=== PATIENT | male | born 1935 | race American Indian/Alaskan Native ===

== ENCOUNTER 2018-04-12 07:03 | Day surgery (SDC) | payer MEDICARE ==
[~2018-04-12 07:03] MED LIST: ANCEF/STERILE WATER 2 GM/20 ML 2 GM/20 ML SYRINGE IV NR
[2018-04-12] MEDS ORDERED: HEPARIN 10,000 UNITS/10 ML ONE (09:01)
[2018-04-12] MEDS ORDERED: HEPARIN/NS 5000 UNIT/500ML(CATH LAB) 1,000 ML IR ONE (09:01)
[2018-04-12] MEDS ORDERED: XYLOCAINE 2% INFILTRATI ONE (09:02)
[2018-04-12] MEDS ORDERED: ANCEF/STERILE WATER 2 GM/20 ML 2 GM/20 ML SYRINGE IV ONE (09:02)
[2018-04-12] MEDS ORDERED: NACL 0.9% 500 ML 500 ML ONE (09:03)
[2018-04-12] MEDS ORDERED: SUBLIMAZE ONE (09:03)
[2018-04-12] MEDS: VERSED ONE ×2 (09:30→09:52)
[2018-04-12] MEDS ORDERED: XYLOCAINE 1%/ EPI 1:100,000 INFILTRATI ONE (09:59)
[2018-04-12 12:49] VITALS: BP 155/78
--- NOTE | 2018-04-12 16:03 | Short Stay Summary ---
Short Stay Documentation Date of service: 04/12/18 Narrative H&P: 83 year old male with LUE swelling and thrombosed LUE brachiocephalic AVF created less than a month ago. Discussed with family at bedside. Patient is a patient of Dr. Carbone. Discussed how Dr. Carbone or [facility]S can followup with the patient, but he would best be served by a right sided graft given that he has been catheter dependent on the LIJ for 3 years and likely has central narrowing. Family understands. - History Principal diagnosis: Complications of catheter/ESRD complications Past Medical History: dialysis Past Surgical History: Other (RUE AND LUE AVF creation, both failed) - Allergies and Medications Current Medications: Allergies aspirin Adverse Reaction (Unverified 04/12/18 07:04) Hives Home Medications Medication Instructions Recorded Confirmed Last Taken Type Calcium Acetate 3 cap PO TIDWM 04/12/18 04/12/18 5 Months Ago History ~11/13/17 Furosemide [Lasix] 80 mg PO BID 04/12/18 04/12/18 04/12/18 06:00 History amLODIPine [Norvasc] 10 mg PO DAILY 04/12/18 04/12/18 04/12/18 06:00 History - Physical exam General appearance: no acute distress Lungs: Normal air movement Gastrointestinal: normal Extremities: normal temperature, normal color, abnormal (edema LUE, thrombosed brachio-cephalic AVF) - Brief post op/procedure progress note Date of procedure: 04/12/18 Pre-op diagnosis: LUE swelling, complication of hemodialysis catheter Post-op diagnosis: same Procedure: Permcath exchange Central venography Venoplasty of the SVC and L innominate vein Anesthesia: local (w/ conscious sedation) Surgeon: LORNE SINGH Estimated blood loss: minimal Condition: stable - Hospital course Hospital course: Tolerated procedure without issue. Ready for discharge. - Disposition Condition at discharge: Stable Disposition: DC-01 TO HOME OR SELFCARE - Discharge Diagnoses (1) Complications due to renal dialysis device, implant, and graft Status: Acute Short Stay Discharge Plan Activity: advance as tolerated Weight Bearing Status: Weight Bear as Tolerated Diet: renal Wound: keep clean and dry (keep catheter dry) Follow up with: PRIMARY CARE,MD [Primary Care Provider] - 7 Days Forms: AVG Arteriogram D/CInstruction
--- NOTE | 2018-04-12 16:03 | Operative Report ---
Operative Report Operative Report: EXAM: 1. Fluoroscopic guided exchange of a left internal jugular tunneled cuffed hemodialysis catheter. 2. Superior venacava venography and left innominate venography 3. Angioplasty of the SVC and left innominate vein with a 12 mm x 60 mm angioplasty balloon DATE: 04/12/18 INDICATION: Creation of left brachiocephalic AV fistula which is thrombosed within the first month of creation with severe swelling of the left upper extremity and left jugular PermCath for 3 years. MEDICATIONS: Please see nursing report for full details. BSW: LORNE SINGH MD DEVICES: 23 cm tip to cuff 15 Fr dual lumen hemodialysis catheter ; existing catheter was a 23 cm tip to cuff dual lumen hemodialysis catheter CONTRAST: Please see electrical laboratory technician report for full details. PROCEDURE: The risks, benefits, and alternatives were discussed and informed consent was obtained. The patient was transported to the angiography suite in satisfactory/ stable condition and was transported onto the angiography table. The patient was prepped and draped in a sterile fashion. The existing PermCath was prepped and draped in a sterile fashion. Heparin was removed from the lumens and then saline was used to flush the lumens. A stiff angled Glidewire was advanced through one of the lumen of the existing PermCath. Lidocaine was used to anesthetize the existing PermCath dermatotomy. Using a hemostat, blunt dissection was used to free the existing cuff. The catheter was partially retracted. Digital subtraction venography was performed through the other lumen. Over the 0.035 inch wire, the existing PermCath was removed and a 7 Icelandic sheath was advanced over the wire. 12 mm x 60 mm angioplasty balloon was advanced over the wire and used to perform angioplasty of the SVC and left innominate vein. Digital subtraction angiography was performed. The balloon was removed and a second wire was passed into the IVC. The sheath was removed. A new PermCath was advanced over the wire and position centrally under fluoroscopic guidance. 2-0 Ethilon suture was used to secure the catheter at the dermatotomy. The catheter was charged with 1000 units of heparin per mL of space. Sterile dressing applied with Biopatch. The patient was transferred from the angiography suite back to the floor in stable condition. FINDINGS: 1. Excellent flow was obtained through the dialysis catheter with 20 mL syringes. 2. The new catheter tip is in the right atrium. 3. Superior vena cava venography mild narrowing in the left innominate vein is essentially occluded. After angioplasty, there is 40% residual narrowing of the left innominate vein and no residual narrowing of the SVC. IMPRESSION: 1. Successful fluoroscopic guided replacement of a left internal jugular tunneled cuffed hemodialysis catheter. 2. Successful angioplasty of the SVC and left innominate vein with a 12 mm x 60 mm angioplasty balloon.
== END 2018-04-12 14:45 | disposition home or self-care (01) ==
LOC: CATHLABREC 07:03
PROVIDERS: ATTEND Radiology Diagnostic Radiology
DX: T82.868A Thrombosis due to vascular prosthetic devices, implants and grafts, initial encounter (principal); N18.6 End stage renal disease; Z88.6 Allergy status to analgesic agent; Y83.2 Surgical operation with anastomosis, bypass or graft as the cause of abnormal reaction of the patient, or of later complication, without mention of misadventure at the time of the procedure
CPT/HCPCS: 36415; 36581; 37248; 77001; 84132; 99156; 99157; C1725; C1750; C1769; C1894; J0690; J1644; J2250; J3010; J7040; Q9967

== ENCOUNTER 2019-09-19 13:52 | Observation (INO) | payer MEDICARE ==
--- NOTE | 2019-09-19 14:36 | Event Note ---
ED Screening Note Date of service: 09/19/19 Time: 14:33 ED Screening Note: 84 yo ESRD on MWF dialysis presents with missed 3 sessions of Dialysis cc of sob This initial assessment/diagnostic orders/clinical plan/treatment(s) is/are subject to change based on patients health status, clinical progression and re- assessment by fellow clinical providers in the ED. Further treatment and workup at subsequent clinical providers discretion. Patient/guardian urged not to elope from the ED as their condition may be serious if not clinically assessed and managed. Initial orders include: labs main side eval
[2019-09-19 15:14] LABS: Basophils % (Auto) 0.8 % (0.0-1.8); Eosinophils # (Auto) 0.3 K/mm3 (0.0-0.4); Eosinophils % (Auto) 6.6 % (0.0-4.3); Hematocrit 30.6 % (35.5-45.6); Hemoglobin 10.6 gm/dl (11.8-15.2); Lymphocytes # (Auto) 1.1 K/mm3 (1.2-5.4); Lymphocytes % (Auto) 23.8 % (13.4-35.0); Mean Corpuscular HGB Conc 35 % (32-34); Mean Corpuscular Volume 95 fl (84-94); Monocytes # (Auto) 0.4 K/mm3 (0.0-0.8); Monocytes % (Auto) 9.3 % (0.0-7.3); Platelet Count 230 K/mm3 (140-440); Red Blood Count 3.24 M/mm3 (3.65-5.03); Red Cell Distribution Width 16.8 % (13.2-15.2)
[2019-09-19 16:31] LABS: Albumin 3.1 g/dL (3.9-5); Calcium 7.6 mg/dL (8.4-10.2)
--- NOTE | 2019-09-19 18:51 | Emergency Department Report ---
ED Medical Clearance HPI - General Chief complaint: Dyspnea/Respdistress Stated complaint: DIALYSIS/BP MED REFILL Time Seen by Provider: 09/19/19 18:39 Source: patient, family, RN notes reviewed Mode of arrival: Ambulatory Limitations: Other (patient is a poor historian) - History of Present Illness Initial comments: Nephrology: Dr. Pat The patient is an 84-year-old gentleman, history of end-stage renal disease, on hemodialysis, Sunday, Sunday, Sunday, his last hemodialysis session was almost a week and a half ago. He also has a history of hypertension. Patient presents with complaint of missing multiple dialysis sessions. He reported some shortness of breath. Apparently he also had a mechanical fall a few days ago, and hit his head. At the time, he did not seek medical attention. He has mild left knee pain. Otherwise, he denies physical pain. He himself does not endorse any additional complaints. As per family, patient was not able to get to dialysis, as local public transportation was not working. MD Complaint: medical clearance request -: unknown Reason for Medical Clearance: other trauma, medical condition, laboratory abnormality Place: home, street Alledged Intoxication: No Compliant with Home Medications: Yes Traumatic Symptoms: extremity injury Associated Symptoms: shortness of breath Home medications: Home Medications Medication Instructions Recorded Confirmed Last Taken amLODIPine [Norvasc] 10 mg PO DAILY 04/12/18 09/19/19 04/12/18 06:00 Sevelamer Carbonate [Renvela] 3 tsp PO TID 09/19/19 09/19/19 Unknown Allergies/Adverse reactions: Allergies Allergy/AdvReac Type Severity Reaction Status Date / Time aspirin AdvReac Hives Unverified 04/12/18 07:04 ED Review of Systems ROS: Stated complaint: DIALYSIS/BP MED REFILL Other details as noted in HPI Constitutional: denies: fever Eyes: denies: eye discharge ENT: denies: congestion Respiratory: shortness of breath Cardiovascular: denies: syncope Gastrointestinal: denies: abdominal pain Genitourinary: denies: dysuria Musculoskeletal: arthralgia, myalgia Skin: denies: lesions Neurological: denies: weakness, numbness, paresthesias, confusion Hematological/Lymphatic: denies: easy bleeding ED Past Medical Hx - Past Medical History Previous Medical History?: Yes Hx Hypertension: Yes Hx Renal Disease: Yes (ESRD; HD MWF) Hx Asthma: Yes - Surgical History Past Surgical History?: No - Social History Smoking Status: Never Smoker Substance Use Type: None - Medications Home Medications: Home Medications Medication Instructions Recorded Confirmed Last Taken Type amLODIPine [Norvasc] 10 mg PO DAILY 04/12/18 09/19/19 04/12/18 06:00 History Sevelamer Carbonate [Renvela] 3 tsp PO TID 09/19/19 09/19/19 Unknown History ED Physical Exam - General Limitations: No Limitations, Other (chaperoned by Mary Meraz) General appearance: alert, in no apparent distress - Head Head exam: Present: atraumatic, normocephalic - Eye Eye exam: Present: normal appearance, EOMI. Absent: nystagmus - ENT ENT exam: Present: normal exam, normal orophraynx, mucous membranes moist, normal external ear exam - Neck Neck exam: Present: normal inspection, full ROM. Absent: tenderness, meningismus - Respiratory Respiratory exam: Present: decreased breath sounds. Absent: wheezes, rales, rhonchi, stridor - Cardiovascular Cardiovascular Exam: Present: regular rate, normal rhythm, normal heart sounds. Absent: bradycardia, tachycardia, irregular rhythm, systolic murmur, diastolic murmur, rubs, gallop - GI/Abdominal GI/Abdominal exam: Present: soft. Absent: distended, tenderness, guarding, rebound, rigid, pulsatile mass - Rectal Rectal exam: Present: deferred - Extremities Exam Extremities exam: Present: full ROM, pedal edema, other (2+ pulses noted in the bilateral upper and lower extremities. The pelvis is stable. There is no long bony tenderness. The muscular compartments are soft. There is no redness, pus, streaking or erythema.). Absent: normal inspection (there is a small abrasion to the left lateral knee. There is no tenderness. There is no laceration.), tenderness, calf tenderness - Back Exam Back exam: Present: normal inspection. Absent: tenderness, CVA tenderness (R), CVA tenderness (L), paraspinal tenderness, vertebral tenderness - Neurological Exam Neurological exam: Present: alert, other (there is no facial droop. The tongue is midline. Extraocular movements are intact bilaterally. Speaking in full sentences. Hearing is grossly intact. 5 out of 5 strength bilateral upper and lower extremities. Sensation is intact to light touch bilateral upper and lower extremities.). Absent: motor sensory deficit - Skin Skin exam: Present: warm ED Course Vital Signs 09/19/19 09/19/19 09/19/19 14:33 19:30 20:00 Temperature 97.5 F L 97.6 F Pulse Rate 65 62 61 Pulse Rate [ Bilateral] Respiratory 20 16 17 Rate Respiratory Rate [Bilateral ] Blood Pressure 160/79 Blood Pressure 153/66 160/79 [Left] O2 Sat by Pulse 100 95 100 Oximetry 09/19/19 09/19/19 09/19/19 20:21 20:30 21:00 Temperature Pulse Rate 64 54 L Pulse Rate [ 55 L Bilateral] Respiratory 15 14 Rate Respiratory 15 Rate [Bilateral ] Blood Pressure 168/77 Blood Pressure [Left] O2 Sat by Pulse 100 100 Oximetry 09/19/19 09/19/19 09/19/19 21:30 22:22 22:30 Temperature Pulse Rate 64 60 58 L Pulse Rate [ Bilateral] Respiratory 20 19 17 Rate Respiratory Rate [Bilateral ] Blood Pressure 154/67 154/67 154/61 Blood Pressure [Left] O2 Sat by Pulse 100 97 97 Oximetry 09/19/19 09/19/19 09/19/19 23:00 23:30 23:42 Temperature Pulse Rate 57 L 56 L 60 Pulse Rate [ Bilateral] Respiratory 15 18 17 Rate Respiratory Rate [Bilateral ] Blood Pressure 149/63 149/63 149/57 Blood Pressure [Left] O2 Sat by Pulse 94 93 93 Oximetry 09/20/19 09/20/19 09/20/19 00:00 00:30 01:00 Temperature Pulse Rate 58 L 70 60 Pulse Rate [ Bilateral] Respiratory 17 18 17 Rate Respiratory Rate [Bilateral ] Blood Pressure 149/57 138/61 131/75 Blood Pressure [Left] O2 Sat by Pulse 90 95 94 Oximetry - Reevaluation(s) Reevaluation #1: 09/19/19 23:40 Patient resting comfortably, and in no acute distress. CT scan of the brain is negative for acute disease. Hospital physician, Dr. Timmons, has accepted the patient medical service. ED Medical Decision Making - Lab Data Result diagrams: 09/19/19 14:52 09/19/19 14:52 Vital Signs 09/19/19 09/19/19 09/19/19 14:33 19:30 20:00 Temperature 97.5 F L 97.6 F Pulse Rate 65 62 61 Pulse Rate [ Bilateral] Respiratory 20 16 17 Rate Respiratory Rate [Bilateral ] Blood Pressure 160/79 Blood Pressure 153/66 160/79 [Left] O2 Sat by Pulse 100 95 100 Oximetry 09/19/19 09/19/19 20:21 20:30 Temperature Pulse Rate 64 Pulse Rate [ 55 L Bilateral] Respiratory 15 Rate Respiratory 15 Rate [Bilateral ] Blood Pressure Blood Pressure [Left] O2 Sat by Pulse 100 Oximetry Lab Results 09/19/19 09/19/19 Range/Units 14:52 14:52 WBC 4.8 (4.5-11.0) K/mm3 RBC 3.24 L (3.65-5.03) M/mm3 Hgb 10.6 L (11.8-15.2) gm/dl Hct 30.6 L (35.5-45.6) % MCV 95 H (84-94) fl MCH 33 H (28-32) pg MCHC 35 H (32-34) % RDW 16.8 H (13.2-15.2) % Plt Count 230 (140-440) K/mm3 Lymph % (Auto) 23.8 (13.4-35.0) % [place] % (Auto) 9.3 H (0.0-7.3) % Eos % (Auto) 6.6 H (0.0-4.3) % Baso % (Auto) 0.8 (0.0-1.8) % Lymph # 1.1 L (1.2-5.4) K/mm3 [place] # 0.4 (0.0-0.8) K/mm3 Eos # 0.3 (0.0-0.4) K/mm3 Baso # 0.0 (0.0-0.1) K/mm3 Seg Neutrophils % 59.5 (40.0-70.0) % Seg Neutrophils # 2.9 (1.8-7.7) K/mm3 Sodium 139 (137-145) mmol/L Potassium 5.8 H (3.6-5.0) mmol/L Chloride 100.7 (98-107) mmol/L Carbon Dioxide 15 L (22-30) mmol/L Anion Gap 29 mmol/L BUN 136 H (9-20) mg/dL Creatinine 16.1 H (0.8-1.5) mg/dL Estimated GFR 3 ml/min BUN/Creatinine Ratio 8 % Glucose 88 (75-100) mg/dL Calcium 7.6 L (8.4-10.2) mg/dL Total Bilirubin 0.40 (0.1-1.2) mg/dL AST 13 (5-40) units/L ALT 5 L (7-56) units/L Alkaline Phosphatase 84 (35-129) units/L Total Protein 6.8 (6.3-8.2) g/dL Albumin 3.1 L (3.9-5) g/dL Albumin/Globulin Ratio 0.8 % - EKG Data -: EKG Interpreted by Me - EKG Data 09/19/19 21:02 The EKG is abnormal. The EKG shows a bradycardic rhythm, 61 bpm, appears to be first-degree AV block, with very prolonged GA interval., there is a left axis deviation, QTC is 510 ms, there is an incomplete right bundle branch block, there is an interventricular conduction delay, the EKG is abnormal, it is not consistent with ST elevation myocardial infarction. - Radiology Data Radiology results: pending, image reviewed interpreted by me: xr chest--> Pulmonary vascular congestion, enlarged cardiac silhouette - Medical Decision Making Differential diagnosis, including but not limited to: Azotemia, uremia, metabolic acidosis, intracranial injury, hyperkalemia Assessment and plan: 84-year-old gentleman who has missed a few dialysis sessions, now with hyperkalemia, azotemia, and uremia. He also has a subacute history of mild blunt head trauma. There is no midline cervical spine tenderness. The injury was sustained a few days ago.Patient is clinically sober at this time. The cervical spine is cleared through nexus and togolese c spine rule Doubt intracranial injury. However, given his advanced age, noncontrast CT scan of the brain will be obtained. Contacted covering nephrology, Dr. Fuentes, who advises medical management for hyperkalemia, and indicates his group can arrange for dialysis in the morning. Discussed this with patient and family, patient and family amenable to hospitalization. CT scan of the brain is pending interpretation and acquisition at this time. ED Disposition Clinical Impression: Azotemia, Uremia, Hyperkalemia, History of fall Disposition: DC-01 TO HOME OR SELFCARE Is pt being admited?: Yes Does the pt Need Aspirin: No Condition: Fair
[2019-09-19] MEDS ORDERED: CALCIUM GLUCONATE 2,000 MG in SODIUM CHLORIDE 0.9% 100 ML IV ONE (18:54)
[2019-09-19] MEDS ORDERED: SODIUM BICARB 8.4% 50 MEQ/50 ML SYRINGE IV ONE (18:54)
[2019-09-19] MEDS ORDERED: ALBUTEROL 2.5 MG/3 ML NEBU IH ONE (18:54)
[2019-09-19] MEDS ORDERED: INSULIN REGULAR, HUMAN 100 UNITS/1 ML IV ONE (18:54)
[2019-09-19] MEDS ORDERED: DEXTROSE 50% IN WATER (25GM) 50 ML SYRINGE IV ONE (18:54)
[2019-09-19] MEDS ORDERED: SODIUM CHLORIDE 0.9% 100 ML IV PRN (19:49)
--- NOTE | 2019-09-19 22:17 | XRay Report ---
CHEST 1 VIEW INDICATION / CLINICAL INFORMATION: End-stage renal disease and fluid overload. COMPARISON: None available FINDINGS: SUPPORT DEVICES: None. HEART / MEDIASTINUM: Moderate cardiomegaly. LUNGS / PLEURA: Elevated right diaphragm. Bibasilar platelike atelectasis. No laura consolidation of pulmonary parenchyma. Mildly increased interstitial markings throughout both lungs. Scattered calcifi ed granulomata are present. There may be a small left pleural effusion. No right pleural fluid is timi reciated. No pneumothorax. IMPRESSION: Mild cardiomegaly with suggestion of mild interstitial edema and possibly a small left pleural effusi on. Signer Name: Xavi Diaz MD Signed: 09/19/2019 10:12 PM Workstation Name: [id number]
[2019-09-19 22:22] LABS: Hepatitis C Virus Antibody Nonreactive (NonReactive)
[2019-09-19 22:23] LABS: Hepatitis B Surface Antigen Nonreactive (Negative)
--- NOTE | 2019-09-19 23:31 | Cat Scan Report ---
Examination: CT of the head without contrast Clinical information: Trauma. Comparison: No relevant prior studies are available for comparison. Technical: Multiple axial CT images of the head were obtained without intravenous contrast. Sagittal and coronal reformats were obtained. All CTs at this facility utilize dose reduction techniques inc luding automated exposure control, iterative reconstruction and weight based dosing when appropriate to reduce patient radiation dose to as low as reasonable achievable. Findings: There is no CT evidence of acute intracranial hemorrhage or large territorial infarct. Mode rate generalized parenchymal atrophy is noted with concomitant dilatation of the ventricular system a nd prominence of sulcal spaces. No extra-axial fluid collection is identified. Evaluation of bony structures demonstrates no evidence of acute bony abnormality. The visualized para nasal sinuses and mastoid air cells are clear. Impression: 1. No CT evidence of acute intracranial process. 2. Chronic and age-related changes as described above. Signer Name: Janneth Zaidi MD Signed: 09/19/2019 11:27 PM Workstation Name: [id number]
[2019-09-19] MEDS ORDERED: ALBUTEROL 2.5 MG/3 ML NEBU IH PRN (23:41)
[2019-09-19] MEDS ORDERED: ONDANSETRON 4 MG/2 ML INJ IV PRN (23:41)
[2019-09-19] MEDS ORDERED: ACETAMINOPHEN 325 MG TAB PO PRN (23:41)
[2019-09-19] MEDS ORDERED: METOCLOPRAMIDE 10 MG/2 ML INJ IV PRN (23:41)
[2019-09-20] MEDS ORDERED: diphenhydrAMINE 50 MG/ML VIAL IV PRN (00:09)
[2019-09-20] MEDS ORDERED: METOCLOPRAMIDE 10 MG/2 ML INJ IV PRN (00:27)
--- NOTE | 2019-09-20 00:32 | History and Physical Report ---
<FERNANDO POST - Last Filed: 09/20/19 01:18> History of Present Illness Date of examination: 09/19/19 Date of admission: 09/19/2019 Chief complaint: SOB, missed HD, and recent fall History of present illness: 84-year-old -Maltese male with history of ESRD on HD (M/W/F), and asthma who presents to [facility] ED with complaints of shortness of breath after missing multiple dialysis. Patient is a poor historian, and provides limited history. Patient states that he has missed multiple dialysis appointments due to transportation issues. He was last dialyzed on 09/08/2019. Over the past week he has experienced progressively worsening shortness of breath. His shortness of breath is worse with activity and improves with rest. Additionally he complains of mild left knee pain after falling a few days ago. He did not seek medical attention, because he felt fine. Admits to head injury during the fall. He denies loss of consciousness. Past History Past Medical History: ESRD (on HD M/W/F), other (asthma) Past Surgical History: Other (MEÑO AV Fistula) Social history: lives with family Family history: no significant family history Medications and Allergies Allergies Allergy/AdvReac Type Severity Reaction Status Date / Time aspirin AdvReac Hives Unverified 04/12/18 07:04 Home Medications Medication Instructions Recorded Confirmed Last Taken Type amLODIPine [Norvasc] 10 mg PO DAILY 04/12/18 09/19/19 04/12/18 06:00 History Sevelamer Carbonate [Renvela] 3 tsp PO TID 09/19/19 09/19/19 Unknown History Active Meds: Active Medications Acetaminophen (Tylenol) 650 mg PO Q4H PRN PRN Reason: Pain MILD(1-3)/Fever >100.5/DEVINE Albuterol (Proventil) 2.5 mg IH Q3HRT PRN PRN Reason: Shortness Of Breath Amlodipine Besylate (Amlodipine) 10 mg PO DAILY SKYLAR Diphenhydramine HCl (Benadryl) 25 mg IV Q6H PRN PRN Reason: Itching Heparin Sodium (Porcine) (Heparin) 5,000 unit SUB-Q Q12HR SKYLAR Sodium Chloride (Nacl 0.9%) 100 mls @ 999 mls/hr IV MACK PRN PRN Reason: Hypotension Metoclopramide HCl (Reglan) 2.5 mg IV Q6H PRN PRN Reason: Nausea And Vomiting Ondansetron HCl (Zofran) 4 mg IV Q8H PRN PRN Reason: Nausea And Vomiting Sevelamer Carbonate (Renvela) 2,400 mg PO TIDWM SKYLAR Sodium Chloride (Sodium Chloride Flush Syringe 10 Ml) 10 ml IV BID SKYLAR Sodium Chloride (Sodium Chloride Flush Syringe 10 Ml) 10 ml IV PRN PRN PRN Reason: LINE FLUSH Review of Systems All systems: negative Respiratory: shortness of breath, dyspnea on exertion Musculoskeletal: other (recent fall and mild left knee pain ) Exam - Physical Exam Narrative exam: Physical exam General appearance: Present: No acute distress, alert and oriented 3, well- developed, older adult male - EENT Eyes: Present: PERRL, EOM intact ENT: hearing intact, poor dentition - Neck Neck: Present: supple, normal ROM - Respiratory Respiratory effort: Non-labored Respiratory: faint crackles to bases - Cardiovascular Heart rate: 61 (bpm) Rhythm: Sinus rhythm Heart Sounds: Present: S1 & S2. Absent: rub, click - Extremities Extremities: no ischemia, pulses intact, right upper arm AV fistula - Peripheral Assessment Peripheral Pulses: within normal limits - Abdominal General gastrointestinal: soft, non-tender, normal bowel sounds - Integumentary Integumentary: Present: warm, dry - Musculoskeletal Musculoskeletal: Able to move all extremities -Neurological Neurological: CN II-XII intact - Psychiatric Psychiatric: cooperative - Constitutional Vitals: Temp Pulse Resp BP Pulse Ox 97.6 F 56 L 18 149/63 93 09/19/19 19:30 09/19/19 23:30 09/19/19 23:30 09/19/19 23:30 09/19/19 23:30 Results - Labs CBC & Chem 7: 09/19/19 14:52 09/19/19 14:52 Labs: Laboratory Last Values WBC 4.8 K/mm3 (4.5-11.0) 09/19/19 14:52 RBC 3.24 M/mm3 (3.65-5.03) L 09/19/19 14:52 Hgb 10.6 gm/dl (11.8-15.2) L 09/19/19 14:52 Hct 30.6 % (35.5-45.6) L 09/19/19 14:52 MCV 95 fl (84-94) H 09/19/19 14:52 MCH 33 pg (28-32) H 09/19/19 14:52 MCHC 35 % (32-34) H 09/19/19 14:52 RDW 16.8 % (13.2-15.2) H 09/19/19 14:52 Plt Count 230 K/mm3 (140-440) 09/19/19 14:52 Lymph % (Auto) 23.8 % (13.4-35.0) 09/19/19 14:52 [place] % (Auto) 9.3 % (0.0-7.3) H 09/19/19 14:52 Eos % (Auto) 6.6 % (0.0-4.3) H 09/19/19 14:52 Baso % (Auto) 0.8 % (0.0-1.8) 09/19/19 14:52 Lymph # 1.1 K/mm3 (1.2-5.4) L 09/19/19 14:52 [place] # 0.4 K/mm3 (0.0-0.8) 09/19/19 14:52 Eos # 0.3 K/mm3 (0.0-0.4) 09/19/19 14:52 Baso # 0.0 K/mm3 (0.0-0.1) 09/19/19 14:52 Seg Neutrophils % 59.5 % (40.0-70.0) 09/19/19 14:52 Seg Neutrophils # 2.9 K/mm3 (1.8-7.7) 09/19/19 14:52 Sodium 139 mmol/L (137-145) 09/19/19 14:52 Potassium 5.8 mmol/L (3.6-5.0) H 09/19/19 14:52 Chloride 100.7 mmol/L (98-107) 09/19/19 14:52 Carbon Dioxide 15 mmol/L (22-30) L 09/19/19 14:52 Anion Gap 29 mmol/L 09/19/19 14:52 BUN 136 mg/dL (9-20) H 09/19/19 14:52 Creatinine 16.1 mg/dL (0.8-1.5) H 09/19/19 14:52 Estimated GFR 3 ml/min 09/19/19 14:52 BUN/Creatinine Ratio 8 % 09/19/19 14:52 Glucose 88 mg/dL (75-100) 09/19/19 14:52 Calcium 7.6 mg/dL (8.4-10.2) L 09/19/19 14:52 Total Bilirubin 0.40 mg/dL (0.1-1.2) 09/19/19 14:52 AST 13 units/L (5-40) 09/19/19 14:52 ALT 5 units/L (7-56) L 09/19/19 14:52 Alkaline Phosphatase 84 units/L (35-129) 09/19/19 14:52 Total Protein 6.8 g/dL (6.3-8.2) 09/19/19 14:52 Albumin 3.1 g/dL (3.9-5) L 09/19/19 14:52 Albumin/Globulin Ratio 0.8 % 09/19/19 14:52 Hepatitis A IgM Ab Nonreactive (NonReactive) 09/19/19 21:04 Hep Bs Antigen Nonreactive (Negative) 09/19/19 21:04 Hep B Core IgM Ab Non-reactive (NonReactive) 09/19/19 21:04 Hepatitis C Antibody Nonreactive (NonReactive) 09/19/19 21:04 - Imaging and Cardiology Imaging and Cardiology: CXR: FINDINGS: SUPPORT DEVICES: None. HEART / MEDIASTINUM: Moderate cardiomegaly. LUNGS / PLEURA: Elevated right diaphragm. Bibasilar platelike atelectasis. No laura consolidation of pulmonary parenchyma. Mildly increased interstitial markings throughout both lungs. Scattered calcified granulomata are present. There may be a small left pleural effusion. No right pleural fluid is appreciated. No pneumothorax. IMPRESSION: Mild cardiomegaly with suggestion of mild interstitial edema and possibly a small left pleural effusion. CT Head: Impression: Negative for acute findings Assessment and Plan Assessment and plan: 84-year-old -Maltese male with history of ESRD on HD (M/W/F), and asthma who presents to [facility] ED with complaints of shortness of breath after missing multiple dialysis. Hyperkalemia -on admission 5.8 -Received hyperkalemic cocktail -Follow-up on repeat labs -Continue to monitor electrolytes ESRD -on HD M/W/F -Last dialyzed on Sunday (09/08/2019) -Missed HD sessions due to transportation issues -Cr on admission 16.1 -Avoid nephrotoxic agents -Renal dose all meds -Nephrology consulted Recent Fall -Pt resports falling a few days ago and hitting his head -CT Head Negative Asthma -Albuterol prn DVT PPX -on Heparin Advance Directives: No VTE prophylaxis?: Chemical Plan of care discussed with patient/family: Yes <REED GRIMES - Last Filed: 09/20/19 02:26> History of Present Illness Date of admission: 09/19/19 23:41 Medications and Allergies Active Meds: Active Medications Acetaminophen (Tylenol) 650 mg PO Q4H PRN PRN Reason: Pain MILD(1-3)/Fever >100.5/DEVINE Albuterol (Proventil) 2.5 mg IH Q3HRT PRN PRN Reason: Shortness Of Breath Amlodipine Besylate (Amlodipine) 10 mg PO DAILY SKYLAR Diphenhydramine HCl (Benadryl) 25 mg IV Q6H PRN PRN Reason: Itching Heparin Sodium (Porcine) (Heparin) 5,000 unit SUB-Q Q12HR SKYLAR Sodium Chloride (Nacl 0.9%) 100 mls @ 999 mls/hr IV MACK PRN PRN Reason: Hypotension Metoclopramide HCl (Reglan) 2.5 mg IV Q6H PRN PRN Reason: Nausea And Vomiting Ondansetron HCl (Zofran) 4 mg IV Q8H PRN PRN Reason: Nausea And Vomiting Sevelamer Carbonate (Renvela) 2,400 mg PO TIDWM SKYLAR Sodium Chloride (Sodium Chloride Flush Syringe 10 Ml) 10 ml IV BID SKYLAR Sodium Chloride (Sodium Chloride Flush Syringe 10 Ml) 10 ml IV PRN PRN PRN Reason: LINE FLUSH Exam - Constitutional Vitals: Temp Pulse Resp BP Pulse Ox 97.6 F 60 17 131/75 94 09/19/19 19:30 09/20/19 01:00 09/20/19 01:00 09/20/19 01:00 09/20/19 01:00 Results - Labs CBC & Chem 7: 09/19/19 14:52 09/20/19 01:11 Labs: Laboratory Last Values WBC 4.8 K/mm3 (4.5-11.0) 09/19/19 14:52 RBC 3.24 M/mm3 (3.65-5.03) L 09/19/19 14:52 Hgb 10.6 gm/dl (11.8-15.2) L 09/19/19 14:52 Hct 30.6 % (35.5-45.6) L 09/19/19 14:52 MCV 95 fl (84-94) H 09/19/19 14:52 MCH 33 pg (28-32) H 09/19/19 14:52 MCHC 35 % (32-34) H 09/19/19 14:52 RDW 16.8 % (13.2-15.2) H 09/19/19 14:52 Plt Count 230 K/mm3 (140-440) 09/19/19 14:52 Lymph % (Auto) 23.8 % (13.4-35.0) 09/19/19 14:52 [place] % (Auto) 9.3 % (0.0-7.3) H 09/19/19 14:52 Eos % (Auto) 6.6 % (0.0-4.3) H 09/19/19 14:52 Baso % (Auto) 0.8 % (0.0-1.8) 09/19/19 14:52 Lymph # 1.1 K/mm3 (1.2-5.4) L 09/19/19 14:52 [place] # 0.4 K/mm3 (0.0-0.8) 09/19/19 14:52 Eos # 0.3 K/mm3 (0.0-0.4) 09/19/19 14:52 Baso # 0.0 K/mm3 (0.0-0.1) 09/19/19 14:52 Seg Neutrophils % 59.5 % (40.0-70.0) 09/19/19 14:52 Seg Neutrophils # 2.9 K/mm3 (1.8-7.7) 09/19/19 14:52 Sodium 139 mmol/L (137-145) 09/19/19 14:52 Potassium 5.4 mmol/L (3.6-5.0) H 09/20/19 01:11 Chloride 100.7 mmol/L (98-107) 09/19/19 14:52 Carbon Dioxide 15 mmol/L (22-30) L 09/19/19 14:52 Anion Gap 29 mmol/L 09/19/19 14:52 BUN 136 mg/dL (9-20) H 09/19/19 14:52 Creatinine 16.1 mg/dL (0.8-1.5) H 09/19/19 14:52 Estimated GFR 3 ml/min 09/19/19 14:52 BUN/Creatinine Ratio 8 % 09/19/19 14:52 Glucose 88 mg/dL (75-100) 09/19/19 14:52 Calcium 7.6 mg/dL (8.4-10.2) L 09/19/19 14:52 Total Bilirubin 0.40 mg/dL (0.1-1.2) 09/19/19 14:52 AST 13 units/L (5-40) 09/19/19 14:52 ALT 5 units/L (7-56) L 09/19/19 14:52 Alkaline Phosphatase 84 units/L (35-129) 09/19/19 14:52 Total Protein 6.8 g/dL (6.3-8.2) 09/19/19 14:52 Albumin 3.1 g/dL (3.9-5) L 09/19/19 14:52 Albumin/Globulin Ratio 0.8 % 09/19/19 14:52 Hepatitis A IgM Ab Nonreactive (NonReactive) 09/19/19 21:04 Hep Bs Antigen Nonreactive (Negative) 09/19/19 21:04 Hep B Core IgM Ab Non-reactive (NonReactive) 09/19/19 21:04 Hepatitis C Antibody Nonreactive (NonReactive) 09/19/19 21:04 Assessment and Plan Assessment and plan: Patient seen and examined, discussed with nurse practitioner, agree with above
[2019-09-20] MEDS ORDERED: ENOXAPARIN 30 MG/0.3 ML INJ SUB-Q SCH (10:00)
[2019-09-20] MEDS: amLODIPine 10 MG TAB PO SCH (10:01)
[2019-09-20] MEDS: HEPARIN 5,000 UNIT/1 ML VIAL SUB-Q SCH ×2 (10:01→22:50)
[2019-09-20] MEDS: SEVELAMER CARBONATE 800 MG TAB PO SCH ×3 (10:01→17:34)
--- NOTE | 2019-09-20 13:58 | Progress Note ---
Assessment and Plan Assessment and plan: Patient is a 84-year-old -Niuean male with history of ESRD on HD (M/W/F), and asthma who presents to [facility] ED with complaints of shortness of breath after missing multiple dialysis. * pCXR Impression: Mild cardiomegaly with suggestion of mild interstitial edema and possibly a small left pleural effusion. * CT Head without contrast Impression: Negative for acute findings Hyperkalemia -on admission 5.8 -Received hyperkalemic cocktail -Follow-up on repeat labs -Continue to monitor electrolytes ESRD -on HD M/W/F -Last dialyzed on Sunday (09/08/2019) -Missed HD sessions due to transportation issues -Cr on admission 16.1 -Avoid nephrotoxic agents -Renal dose all meds -Nephrology consulted Recent Fall -Pt resports falling a few days ago and hitting his head -CT Head Negative Asthma -Albuterol prn DVT PPX -on Heparin History Interval history: Patient was seen and examined. Follow-up on current diagnosis. Overnight uneventful as no events directly reported to me. Patient denies any chest pain, shortness breath, nausea/vomiting or severe headaches. Imaging, nursing note, chart, labs and old chart reviewed. Discussed with patient. Hospitalist Physical - Physical exam Narrative exam: Gen: WDWN, NAD, Awake, Alert, Orientated HEENT: NCAT, EOMI, PERRL, OP Clear Neck: supple, no adenopathy, no thyromegaly, no JVD CVS/Heart: RRR, normal S1S2, pulses present bilaterally Chest/Lungs: CTA B, Symmetrical chest expansion, good air entry bilaterally GI/Abdomen: soft, NTND, good bowel sounds, no guarding or rebound /Bladder: no suprapubic tenderness, no CVA or paraspinal tenderness Extermity/Skin: no c/c/e, no obvious rash MSK: FROM x 4 Neuro: CN 2-12 grossly intact, no new focal deficits Psych: calm - Constitutional Vitals: Temp Pulse Resp BP Pulse Ox 98.7 F 53 L 16 145/74 90 09/20/19 10:50 09/20/19 13:30 09/20/19 10:50 09/20/19 13:30 09/20/19 08:49 Results - Labs CBC & Chem 7: 09/19/19 14:52 09/20/19 01:11 Labs: Laboratory Last Values WBC 4.8 K/mm3 (4.5-11.0) 09/19/19 14:52 RBC 3.24 M/mm3 (3.65-5.03) L 09/19/19 14:52 Hgb 10.6 gm/dl (11.8-15.2) L 09/19/19 14:52 Hct 30.6 % (35.5-45.6) L 09/19/19 14:52 MCV 95 fl (84-94) H 09/19/19 14:52 MCH 33 pg (28-32) H 09/19/19 14:52 MCHC 35 % (32-34) H 09/19/19 14:52 RDW 16.8 % (13.2-15.2) H 09/19/19 14:52 Plt Count 230 K/mm3 (140-440) 09/19/19 14:52 Lymph % (Auto) 23.8 % (13.4-35.0) 09/19/19 14:52 [place] % (Auto) 9.3 % (0.0-7.3) H 09/19/19 14:52 Eos % (Auto) 6.6 % (0.0-4.3) H 09/19/19 14:52 Baso % (Auto) 0.8 % (0.0-1.8) 09/19/19 14:52 Lymph # 1.1 K/mm3 (1.2-5.4) L 09/19/19 14:52 [place] # 0.4 K/mm3 (0.0-0.8) 09/19/19 14:52 Eos # 0.3 K/mm3 (0.0-0.4) 09/19/19 14:52 Baso # 0.0 K/mm3 (0.0-0.1) 09/19/19 14:52 Seg Neutrophils % 59.5 % (40.0-70.0) 09/19/19 14:52 Seg Neutrophils # 2.9 K/mm3 (1.8-7.7) 09/19/19 14:52 Sodium 139 mmol/L (137-145) 09/19/19 14:52 Potassium 5.4 mmol/L (3.6-5.0) H 01/04/20 01:11 Chloride 100.7 mmol/L (98-107) 09/19/19 14:52 Carbon Dioxide 15 mmol/L (22-30) L 09/19/19 14:52 Anion Gap 29 mmol/L 09/19/19 14:52 BUN 136 mg/dL (9-20) H 09/19/19 14:52 Creatinine 16.1 mg/dL (0.8-1.5) H 09/19/19 14:52 Estimated GFR 3 ml/min 09/19/19 14:52 BUN/Creatinine Ratio 8 % 09/19/19 14:52 Glucose 88 mg/dL (75-100) 09/19/19 14:52 Calcium 7.6 mg/dL (8.4-10.2) L 09/19/19 14:52 Total Bilirubin 0.40 mg/dL (0.1-1.2) 09/19/19 14:52 AST 13 units/L (5-40) 09/19/19 14:52 ALT 5 units/L (7-56) L 09/19/19 14:52 Alkaline Phosphatase 84 units/L (35-129) 09/19/19 14:52 Total Protein 6.8 g/dL (6.3-8.2) 09/19/19 14:52 Albumin 3.1 g/dL (3.9-5) L 09/19/19 14:52 Albumin/Globulin Ratio 0.8 % 09/19/19 14:52 Hepatitis A IgM Ab Nonreactive (NonReactive) 09/19/19 21:04 Hep Bs Antigen Nonreactive (Negative) 09/19/19 21:04 Hep B Core IgM Ab Non-reactive (NonReactive) 09/19/19 21:04 Hepatitis C Antibody Nonreactive (NonReactive) 09/19/19 21:04 Active Medications - Current Medications Current Medications: Generic Name Dose Route Start Last Admin Trade Name Freq PRN Reason Stop Dose Admin Acetaminophen 650 mg 09/19/19 23:41 Tylenol PO Q4H PRN Pain MILD(1-3)/Fever >100.5/DEVINE Albuterol 2.5 mg 09/19/19 23:41 Proventil IH Q3HRT PRN Shortness Of Breath Amlodipine Besylate 10 mg 09/20/19 10:00 09/20/19 10:01 Amlodipine PO 10 mg DAILY SKYLAR Administration Heparin Sodium (Porcine) 5,000 unit 09/20/19 10:00 09/20/19 10:01 Heparin SUB-Q 5,000 unit Q12HR SKYLAR Administration Sodium Chloride 100 mls @ 999 mls/hr 09/19/19 19:49 Nacl 0.9% IV MACK PRN Hypotension Metoclopramide HCl 2.5 mg 09/20/19 00:27 Reglan IV Q6H PRN Nausea And Vomiting Ondansetron HCl 4 mg 09/19/19 23:41 Zofran IV Q8H PRN Nausea And Vomiting Sevelamer Carbonate 2,400 mg 09/20/19 08:00 09/20/19 10:01 Renvela PO 2,400 mg TIDWM SKYLAR Administration Sodium Chloride 10 ml 09/20/19 10:00 09/20/19 10:02 Sodium Chloride Flush Syringe 10 Ml IV 10 ml BID SKYLAR Administration Sodium Chloride 10 ml 09/20/19 00:05 Sodium Chloride Flush Syringe 10 Ml IV PRN PRN LINE FLUSH Nutrition/Malnutrition Assess - Dietary Evaluation Nutrition/Malnutrition Findings: Nutrition Notes Start: 09/20/19 12:36 Freq: Status: Active Protocol: Document 09/20/19 12:36 LM (Rec: 09/20/19 12:49 LM [id number]) Nutrition Notes Need for Assessment generated from: MD Order,seismic observer,MST Initial or Follow up Assessment Current Diagnosis CKD (stage V CKD) Other Pertinent Diagnosis on HD (MWF), fall, asthma Current Diet Renal Labs/Tests K 5.4 Pertinent Medications Reviewed Height 5 ft 7 in Weight 58.7 kg Usual Body Weight 81.81 kg [place] Body Weight (kg) 67.27 BMI 20.2 Weight change and time frame 28% wt loss in 2 years Weight Status Underweight Subjective/Other Information MD consult for poor oral intake and ONS. RN screen for MST. Pt stated he ate 3 meals a day at home but is not eating the food here due to not liking it. MD ordered Ensure for pt. Asked pt if he would like to try Nepro but pt stated he does not want anything milky due to causing GI problems. Will order Ensure clear. Took food preferences from pt and encouraged pt to eat. Observed pt with temporal wasting. Burn Absent Trauma Absent GI Symptoms None Current % PO Poor (25-49%) Minimum of two criteria Yes Interpretation of Weight Loss (non- 20% in 1 year severe) Muscle Mass Mild Depletion (non-severe) #2 Nutrition Diagnosis Inadequate oral intake Etiology decreased appetite secondary to not liking hospital food As Evidenced by Signs and Symptoms pt refusing to eat #1 Nutrition Diagnosis Malnutrition Etiology ESRD, chronic illness As Evidenced by Signs and Symptoms temporal wasting, 28% wt loss in 2 years Is patient on ventilator? No Is Patient Ambulatory and/or Out of Bed No REE-([facility]-confined to bed) 1484.208 Kcal/Kg value to use for calculation 34 Approximate Energy Requirements Using 1996 kcal/Kg Calculation Used for Recommendations Kcal/kg Additional Notes Protein:70-88g (1.2-1.5g/kg) Fluid: 1-1.5 L/day Nutrition Intervention Change Diet Order: Continue renal Add Supplement/Snack (indicate name/kcal Ensure Clear mixed vargas BID /protein ) Provides kCal: 480 Provides Protein (gm) 16 Goal #1 Meet at least 80% of energy and protein needs Anticipated Discharge Needs: Renal diet Follow-Up By: 09/22/19 Additional Comments F/U for PO/ONS intakes
--- NOTE | 2019-09-20 17:49 | Consultation ---
History of Present Illness - Reason for Consult Consult date: 09/20/19 end stage renal disease - History of Present Illness This is an 84-year-old man with ESRD who presents with missed dialysis. He is found to have azotemia and hyperkalemia. He is also noted to be short of breath. Per patient, his last dialysis session was more than 1 week ago on September 15, 2019. He has missed his last 2 sessions due to transportation issues. Today, he is seen on HD and denies any acute issues. No cramping, lightheadedness. No dyspnea, no chest pain. He feels ready to go home after HD. Past History Past Medical History: ESRD (on HD M/W/F), other (asthma) Past Surgical History: Other (MEÑO AV Fistula) Social history: lives with family Family history: no significant family history Medications and Allergies Allergies Allergy/AdvReac Type Severity Reaction Status Date / Time aspirin AdvReac Hives Unverified 04/12/18 07:04 Home Medications Medication Instructions Recorded Confirmed Last Taken Type amLODIPine [Norvasc] 10 mg PO DAILY 04/12/18 09/19/19 04/12/18 06:00 History Sevelamer Carbonate [Renvela] 3 tsp PO TID 09/19/19 09/19/19 Unknown History Active Meds: Active Medications Acetaminophen (Tylenol) 650 mg PO Q4H PRN PRN Reason: Pain MILD(1-3)/Fever >100.5/DEVINE Albuterol (Proventil) 2.5 mg IH Q3HRT PRN PRN Reason: Shortness Of Breath Amlodipine Besylate (Amlodipine) 10 mg PO DAILY COUNTS INCLUDE 234 BEDS AT THE [facility] Last Admin: 09/20/19 10:01 Dose: 10 mg Documented by: Heparin Sodium (Porcine) (Heparin) 5,000 unit SUB-Q Q12HR COUNTS INCLUDE 234 BEDS AT THE [facility] Last Admin: 09/20/19 10:01 Dose: 5,000 unit Documented by: Sodium Chloride (Nacl 0.9%) 100 mls @ 999 mls/hr IV MACK PRN PRN Reason: Hypotension Metoclopramide HCl (Reglan) 2.5 mg IV Q6H PRN PRN Reason: Nausea And Vomiting Ondansetron HCl (Zofran) 4 mg IV Q8H PRN PRN Reason: Nausea And Vomiting Sevelamer Carbonate (Renvela) 2,400 mg PO TIDWM COUNTS INCLUDE 234 BEDS AT THE [facility] Last Admin: 09/20/19 17:34 Dose: 2,400 mg Documented by: Sodium Chloride (Sodium Chloride Flush Syringe 10 Ml) 10 ml IV BID COUNTS INCLUDE 234 BEDS AT THE [facility] Last Admin: 09/20/19 10:02 Dose: 10 ml Documented by: Sodium Chloride (Sodium Chloride Flush Syringe 10 Ml) 10 ml IV PRN PRN PRN Reason: LINE FLUSH Review of Systems Constitutional: no weight loss, no weight gain Ears, nose, mouth and throat: no ear pain Cardiovascular: no chest pain, no orthopnea Respiratory: no shortness of breath, no congestion Gastrointestinal: no abdominal pain, no nausea, no vomiting Musculoskeletal: no muscle cramps Integumentary: no rash Neurological: no headaches Psychiatric: no anxiety Exam - Vital Signs Vital signs: Vital Signs Temp Pulse Resp BP Pulse Ox 97.5 F L 65 20 153/66 100 09/19/19 14:33 09/19/19 14:33 09/19/19 14:33 09/19/19 14:33 09/19/19 14:33 - General Appearance General appearance: well-developed, appears stated age, frail EENT: ATNC, PERRL Neck: Present: neck supple Respiratory: Clear to Ascultation Heart: regular, S1S2 Gastrointestinal: Present: normoactive bowel sounds. Absent: tenderness Integumentary: no rash Neurologic: no focal deficit, no asterixis, alert and oriented x3 Psychiatric: mood/affect appropriate Results - Lab Results 09/19/19 14:52 09/20/19 01:11 Most recent lab results Calcium 7.6 mg/dL (8.4-10.2) L 09/19/19 14:52 Assessment and Plan # ESRD: patient dialyzed today for hyperkalemia, uremic symptoms, volume overload. Continue HD MWF if inpatient, or prn based on labs/volume. -renal diet -renally dose meds -daily labs -Okay to discharge from renal perspective after hemodialysis # Anemia: hemoglobin at goal, no indication for GLORIA # HTN: UF as tolerated, BP reasonable # Hyperkalemia, Acidosis, Azotemia: HD as above
--- NOTE | 2019-09-21 05:40 | Event Note ---
Date: 09/21/19 Notified by monitor tach that patient had EKG changes from A. fib to sinus bradycardia with first-degree AV block with a heart rate of 52 bpm. Stat EKG ordered and cardiology consult placed.
[2019-09-21 08:07] LABS: Basophils % (Auto) 1.2 % (0.0-1.8); Eosinophils # (Auto) 0.2 K/mm3 (0.0-0.4); Eosinophils % (Auto) 4.9 % (0.0-4.3); Hematocrit 30.5 % (35.5-45.6); Hemoglobin 10.2 gm/dl (11.8-15.2); Lymphocytes # (Auto) 0.7 K/mm3 (1.2-5.4); Lymphocytes % (Auto) 18.5 % (13.4-35.0); Mean Corpuscular HGB Conc 34 % (32-34); Mean Corpuscular Volume 95 fl (84-94); Monocytes # (Auto) 0.5 K/mm3 (0.0-0.8); Monocytes % (Auto) 12.2 % (0.0-7.3); Platelet Count 171 K/mm3 (140-440); Red Blood Count 3.22 M/mm3 (3.65-5.03); Red Cell Distribution Width 16.6 % (13.2-15.2)
[2019-09-21 08:27] LABS: Calcium 7.9 mg/dL (8.4-10.2)
[2019-09-21] MEDS: amLODIPine 10 MG TAB PO SCH (11:10)
[2019-09-21] MEDS: HEPARIN 5,000 UNIT/1 ML VIAL SUB-Q SCH (11:10)
[2019-09-21] MEDS: SEVELAMER CARBONATE 800 MG TAB PO SCH ×3 (11:11→17:50)
--- NOTE | 2019-09-21 13:43 | Progress Note ---
Assessment and Plan # ESRD: patient dialyzed yesterday for hyperkalemia, uremic symptoms, volume overload. Continue HD MWF if inpatient, or prn based on labs/volume. No HD needs today -renal diet -renally dose meds -daily labs -Okay to discharge from renal perspective after hemodialysis # Anemia: hemoglobin at goal, no indication for GLORIA # HTN: UF as tolerated, BP reasonable # Hyperkalemia, Acidosis, Azotemia: resolved, HD as above Subjective Date of service: 09/21/19 Interval history: No acute events noted. Tolerated HD yesterday. No dyspnea, edema noted today. Objective - Exam Narrative Exam: General appearance: well-developed, appears stated age, frail EENT: ATNC, PERRL Neck: Present: neck supple Respiratory: Clear to Ascultation Heart: regular, S1S2 Gastrointestinal: Present: normoactive bowel sounds. Absent: tenderness Integumentary: no rash Neurologic: no focal deficit, no asterixis, alert and oriented x3 Psychiatric: mood/affect appropriate - Vital Signs Vital signs: Vital Signs - 12hr 09/21/19 05:11 Temperature 98.4 F Pulse Rate 61 Respiratory 18 Rate Blood Pressure 145/67 O2 Sat by Pulse 98 Oximetry - Lab 09/21/19 06:59 09/21/19 06:59 Most recent lab results Calcium 7.9 mg/dL (8.4-10.2) L 09/21/19 06:59 Medications & Allergies - Medications Allergies/Adverse Reactions: Allergies aspirin Adverse Reaction (Unverified 04/12/18 07:04) Hives Home Medications: Home Medications Medication Instructions Recorded Confirmed Last Taken Type amLODIPine [Norvasc] 10 mg PO DAILY 04/12/18 09/19/19 04/12/18 06:00 History Sevelamer Carbonate [Renvela] 3 tsp PO TID 09/19/19 09/19/19 Unknown History Active Medications: Generic Name Dose Route Start Last Admin Trade Name Freq PRN Reason Stop Dose Admin Acetaminophen 650 mg 09/19/19 23:41 Tylenol PO Q4H PRN Pain MILD(1-3)/Fever >100.5/DEVINE Albuterol 2.5 mg 09/19/19 23:41 Proventil IH Q3HRT PRN Shortness Of Breath Amlodipine Besylate 10 mg 09/20/19 10:00 09/21/19 11:10 Amlodipine PO 10 mg DAILY SKYLAR Administration Heparin Sodium (Porcine) 5,000 unit 09/20/19 10:00 09/21/19 11:10 Heparin SUB-Q 5,000 unit Q12HR SKYLAR Administration Sodium Chloride 100 mls @ 999 mls/hr 09/19/19 19:49 Nacl 0.9% IV MACK PRN Hypotension Metoclopramide HCl 2.5 mg 09/20/19 00:27 Reglan IV Q6H PRN Nausea And Vomiting Ondansetron HCl 4 mg 09/19/19 23:41 Zofran IV Q8H PRN Nausea And Vomiting Sevelamer Carbonate 2,400 mg 09/20/19 08:00 09/21/19 11:11 Renvela PO 2,400 mg TIDWM SKYLAR Administration Sodium Chloride 10 ml 09/20/19 10:00 09/21/19 11:11 Sodium Chloride Flush Syringe 10 Ml IV 10 ml BID SKYLAR Administration Sodium Chloride 10 ml 09/20/19 00:05 Sodium Chloride Flush Syringe 10 Ml IV PRN PRN LINE FLUSH
[2019-09-21] MEDS ORDERED: SODIUM CHLORIDE 0.9% 100 ML IV PRN (13:44)
--- NOTE | 2019-09-21 14:10 | Progress Note ---
Assessment and Plan Assessment and plan: Patient is a 84-year-old -[place] man with history of ESRD on HD (M/W/F), and asthma who presents to [facility] ED with complaints of shortness of breath after missing multiple dialysis. * pCXR Impression: Mild cardiomegaly with suggestion of mild interstitial edema and possibly a small left pleural effusion. * CT Head without contrast Impression: Negative for acute findings Afib consulted Cardiology Bradycardia down to 45 Hyperkalemia -on admission 5.8 -Received hyperkalemic cocktail -Follow-up on repeat labs -Continue to monitor electrolytes ESRD -on HD M/W/F -Last dialyzed on Sunday (09/08/2019) -Missed HD sessions due to transportation issues -Cr on admission 16.1 -Avoid nephrotoxic agents -Renal dose all meds -Nephrology consulted Recent Fall -Pt resports falling a few days ago and hitting his head -CT Head Negative Asthma -Albuterol prn DVT PPX -on Heparin History Interval history: Patient was seen and examined. Follow-up on current diagnosis. Overnight uneventful as no events directly reported to me but it appears patient went in Afib then bradycardia. Patient denies any chest pain, shortness breath, nausea/vomiting or severe headaches. Imaging, nursing note, chart, labs and old chart reviewed. Discussed with patient. Hospitalist Physical - Physical exam Narrative exam: Gen: WDWN, NAD, Awake, Alert, Orientated HEENT: NCAT, EOMI, PERRL, OP Clear Neck: supple, no adenopathy, no thyromegaly, no JVD CVS/Heart: irregular irregular, normal S1S2, pulses present bilaterally Chest/Lungs: CTA B, Symmetrical chest expansion, good air entry bilaterally GI/Abdomen: soft, NTND, good bowel sounds, no guarding or rebound /Bladder: no suprapubic tenderness, no CVA or paraspinal tenderness Extermity/Skin: no c/c/e, no obvious rash MSK: FROM x 4 Neuro: CN 2-12 grossly intact, no new focal deficits Psych: calm - Constitutional Vitals: Temp Pulse Resp BP Pulse Ox 98.4 F 61 18 145/67 98 09/21/19 05:11 09/21/19 05:11 09/21/19 05:11 09/21/19 05:11 09/21/19 05:11 Results - Labs CBC & Chem 7: 09/21/19 06:59 09/21/19 06:59 Labs: Laboratory Last Values WBC 3.7 K/mm3 (4.5-11.0) L 09/21/19 06:59 RBC 3.22 M/mm3 (3.65-5.03) L 09/21/19 06:59 Hgb 10.2 gm/dl (11.8-15.2) L 09/21/19 06:59 Hct 30.5 % (35.5-45.6) L 09/21/19 06:59 MCV 95 fl (84-94) H 09/21/19 06:59 MCH 32 pg (28-32) 09/21/19 06:59 MCHC 34 % (32-34) 09/21/19 06:59 RDW 16.6 % (13.2-15.2) H 09/21/19 06:59 Plt Count 171 K/mm3 (140-440) 09/21/19 06:59 Lymph % (Auto) 18.5 % (13.4-35.0) 09/21/19 06:59 [place] % (Auto) 12.2 % (0.0-7.3) H 09/21/19 06:59 Eos % (Auto) 4.9 % (0.0-4.3) H 09/21/19 06:59 Baso % (Auto) 1.2 % (0.0-1.8) 09/21/19 06:59 Lymph # 0.7 K/mm3 (1.2-5.4) L 09/21/19 06:59 [place] # 0.5 K/mm3 (0.0-0.8) 09/21/19 06:59 Eos # 0.2 K/mm3 (0.0-0.4) 09/21/19 06:59 Baso # 0.0 K/mm3 (0.0-0.1) 09/21/19 06:59 Seg Neutrophils % 63.2 % (40.0-70.0) 09/21/19 06:59 Seg Neutrophils # 2.4 K/mm3 (1.8-7.7) 09/21/19 06:59 Sodium 135 mmol/L (137-145) L 01/05/20 06:59 Potassium 4.5 mmol/L (3.6-5.0) 09/21/19 06:59 Chloride 97.6 mmol/L (98-107) L 09/21/19 06:59 Carbon Dioxide 20 mmol/L (22-30) L 09/21/19 06:59 Anion Gap 22 mmol/L 09/21/19 06:59 BUN 68 mg/dL (9-20) H 09/21/19 06:59 Creatinine 9.9 mg/dL (0.8-1.5) H 09/21/19 06:59 Estimated GFR 6 ml/min 09/21/19 06:59 BUN/Creatinine Ratio 7 % 09/21/19 06:59 Glucose 72 mg/dL (75-100) L 09/21/19 06:59 Calcium 7.9 mg/dL (8.4-10.2) L 09/21/19 06:59 Total Bilirubin 0.40 mg/dL (0.1-1.2) 09/19/19 14:52 AST 13 units/L (5-40) 09/19/19 14:52 ALT 5 units/L (7-56) L 09/19/19 14:52 Alkaline Phosphatase 84 units/L (35-129) 09/19/19 14:52 Total Protein 6.8 g/dL (6.3-8.2) 09/19/19 14:52 Albumin 3.1 g/dL (3.9-5) L 09/19/19 14:52 Albumin/Globulin Ratio 0.8 % 09/19/19 14:52 Hepatitis A IgM Ab Nonreactive (NonReactive) 09/19/19 21:04 Hep Bs Antigen Nonreactive (Negative) 09/19/19 21:04 Hep B Core IgM Ab Non-reactive (NonReactive) 09/19/19 21:04 Hepatitis C Antibody Nonreactive (NonReactive) 09/19/19 21:04 Active Medications - Current Medications Current Medications: Generic Name Dose Route Start Last Admin Trade Name Freq PRN Reason Stop Dose Admin Acetaminophen 650 mg 09/19/19 23:41 Tylenol PO Q4H PRN Pain MILD(1-3)/Fever >100.5/DEVINE Albuterol 2.5 mg 09/19/19 23:41 Proventil IH Q3HRT PRN Shortness Of Breath Amlodipine Besylate 10 mg 09/20/19 10:00 09/21/19 11:10 Amlodipine PO 10 mg DAILY SKYLAR Administration Heparin Sodium (Porcine) 5,000 unit 09/20/19 10:00 09/21/19 11:10 Heparin SUB-Q 5,000 unit Q12HR SKYLAR Administration Sodium Chloride 100 mls @ 999 mls/hr 09/21/19 13:44 Nacl 0.9% IV MACK PRN Hypotension Metoclopramide HCl 2.5 mg 09/20/19 00:27 Reglan IV Q6H PRN Nausea And Vomiting Ondansetron HCl 4 mg 09/19/19 23:41 Zofran IV Q8H PRN Nausea And Vomiting Sevelamer Carbonate 2,400 mg 09/20/19 08:00 09/21/19 11:11 Renvela PO 2,400 mg TIDWM SKYLAR Administration Sodium Chloride 10 ml 09/20/19 10:00 09/21/19 11:11 Sodium Chloride Flush Syringe 10 Ml IV 10 ml BID SKYLAR Administration Sodium Chloride 10 ml 09/20/19 00:05 Sodium Chloride Flush Syringe 10 Ml IV PRN PRN LINE FLUSH Nutrition/Malnutrition Assess - Dietary Evaluation Nutrition/Malnutrition Findings: Nutrition Notes Start: 09/20/19 12:36 Freq: Status: Active Protocol: Document 09/20/19 12:36 LM (Rec: 09/20/19 12:49 LM [id number]) Nutrition Notes Need for Assessment generated from: MD Order,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 RN screen for MST. Pt stated he ate 3 meals a day at home but is not eating the food here due to not liking it. ordered Ensure for pt. Asked pt if he would like to try Nepro but pt stated he does not want anything milky due to causing GI problems. Will order Ensure clear. Took food preferences from pt and encouraged pt to eat. Observed pt with temporal wasting. Burn Absent Trauma Absent GI Symptoms None Current % PO Poor (25-49%) Minimum of two criteria Yes Interpretation of Weight Loss (non- 20% in 1 year severe) Muscle Mass Mild Depletion (non-severe) #2 Nutrition Diagnosis Inadequate oral intake Etiology decreased appetite secondary to not liking hospital food As Evidenced by Signs and Symptoms pt refusing to eat #1 Nutrition Diagnosis Malnutrition Etiology ESRD, chronic illness As Evidenced by Signs and Symptoms temporal wasting, 28% wt loss in 2 years Is patient on ventilator? No Is Patient Ambulatory and/or Out of Bed No REE-([facility]-confined to bed) 1484.208 Kcal/Kg value to use for calculation 34 Approximate Energy Requirements Using 1996 kcal/Kg Calculation Used for Recommendations Kcal/kg Additional Notes Protein:70-88g (1.2-1.5g/kg) Fluid: 1-1.5 L/day Nutrition Intervention Change Diet Order: Continue renal Add Supplement/Snack (indicate name/kcal Ensure Clear mixed vargas BID /protein ) Provides kCal: 480 Provides Protein (gm) 16 Goal #1 Meet at least 80% of energy and protein needs Anticipated Discharge Needs: Renal diet Follow-Up By: 09/22/19 Additional Comments F/U for PO/ONS intakes
--- NOTE | 2019-09-21 15:17 | Consultation ---
History of Present Illness Consult date: 09/21/19 Requesting physician: FERNANDO POST Consult reason: other (atrial fibrillation to SB) History of present illness: Mr. Gasca is an 84 y/o male who presented to [facility] with SOB after missing three sessions of dialysis d/t lack of transportation. His medical history is significant for ESRD, ?paroxysmal atrial fibrillation and asthma. He is not known to our practice, but has followed with a ceo na at [facility] in the past. On examination, he is a poor historian and repeatedly asks when he will be discharged so he can resume outpatient dialysis. A review of telemetry shows atrial fibrillation to sinus dedra to sinus rhythm; interim EKGs show some junctional rhythm with IVCD and an old infarct. An echocardiogram in 2016 found an EF of 60 percent, LVH, impaired relaxation, mild TR, trace MR. Past History Past Medical History: ESRD (on HD M/W/F), other (asthma, ?paroxysmal atrial fibrillation ) Past Surgical History: Other (MEÑO AV Fistula) Social history: lives with family Family history: no significant family history Medications and Allergies Allergies Allergy/AdvReac Type Severity Reaction Status Date / Time aspirin AdvReac Hives Unverified 04/12/18 07:04 Home Medications Medication Instructions Recorded Confirmed Last Taken Type amLODIPine [Norvasc] 10 mg PO DAILY 04/12/18 09/19/19 04/12/18 06:00 History Sevelamer Carbonate [Renvela] 3 tsp PO TID 09/19/19 09/19/19 Unknown History Active Meds: Active Medications Acetaminophen (Tylenol) 650 mg PO Q4H PRN PRN Reason: Pain MILD(1-3)/Fever >100.5/DEVINE Albuterol (Proventil) 2.5 mg IH Q3HRT PRN PRN Reason: Shortness Of Breath Amlodipine Besylate (Amlodipine) 10 mg PO DAILY [facility] Last Admin: 09/21/19 11:10 Dose: 10 mg Documented by: Heparin Sodium (Porcine) (Heparin) 5,000 unit SUB-Q Q12HR [facility] Last Admin: 09/21/19 11:10 Dose: 5,000 unit Documented by: Sodium Chloride (Nacl 0.9%) 100 mls @ 999 mls/hr IV MACK PRN PRN Reason: Hypotension Metoclopramide HCl (Reglan) 2.5 mg IV Q6H PRN PRN Reason: Nausea And Vomiting Ondansetron HCl (Zofran) 4 mg IV Q8H PRN PRN Reason: Nausea And Vomiting Sevelamer Carbonate (Renvela) 2,400 mg PO TIDWM [facility] Last Admin: 09/21/19 11:11 Dose: 2,400 mg Documented by: Sodium Chloride (Sodium Chloride Flush Syringe 10 Ml) 10 ml IV BID [facility] Last Admin: 09/21/19 11:11 Dose: 10 ml Documented by: Sodium Chloride (Sodium Chloride Flush Syringe 10 Ml) 10 ml IV PRN PRN PRN Reason: LINE FLUSH Review of Systems All systems: negative Physical Examination Vital Signs Temp Pulse Resp BP Pulse Ox 97.5 F L 65 20 153/66 100 09/19/19 14:33 09/19/19 14:33 09/19/19 14:33 09/19/19 14:33 09/19/19 14:33 General appearance: no acute distress HEENT: Positive: PERRL Neck: Positive: neck supple Cardiac: Positive: Irregularly Regular Lungs: Positive: Normal Exam Neuro: Positive: Grossly Intact Abdomen: Positive: Unremarkable Male genitourinary: Positive: deferred Skin: Positive: Clear Musculoskeletal: Normal Range of Motion Extremities: Present: normal Results 09/21/19 06:59 09/21/19 06:59 CBC 09/21/19 Range/Units 06:59 WBC 3.7 L (4.5-11.0) K/mm3 RBC 3.22 L (3.65-5.03) M/mm3 Hgb 10.2 L (11.8-15.2) gm/dl Hct 30.5 L (35.5-45.6) % Plt Count 171 (140-440) K/mm3 Lymph # 0.7 L (1.2-5.4) K/mm3 [place] # 0.5 (0.0-0.8) K/mm3 Eos # 0.2 (0.0-0.4) K/mm3 Baso # 0.0 (0.0-0.1) K/mm3 Comprehensive Metabolic Panel 09/21/19 Range/Units 06:59 Sodium 135 L (137-145) mmol/L Potassium 4.5 (3.6-5.0) mmol/L Chloride 97.6 L (98-107) mmol/L Carbon Dioxide 20 L (22-30) mmol/L BUN 68 H (9-20) mg/dL Creatinine 9.9 H (0.8-1.5) mg/dL Glucose 72 L (75-100) mg/dL Calcium 7.9 L (8.4-10.2) mg/dL - Imaging and Cardiology Echo: report reviewed (2016: EF of 60 percent, LVH, impaired relaxation, mild TR, trace MR) EKG interpretations - Telemetry EKG Rhythm: Sinus Rhythm (atrial fib, SB) - EKG Supraventricular dysrhythmia: junctional rhythm Myocardial infarction: anterior AL (old age or i Assessment and Plan Mr. Gasca is an 84 y/o male admitted after missing several sessions of outpatient dialysis. Rhythm issues are transient. Afib appears to be paroxysmal - records from [place] reveal afib on previous occasions. Will defer on anticoagulation for d/t h/o noncompliance. Recommend dialysis as per nephrology and to continue current cardiac management. Avoid beta blockers d/t intermittent bradycardia. We have nothing further to add and will sign off. Follow up with Dr. Cash in 7-10 days. The patient has been seen in conjunction with Dr. Cash, who agrees with the assessment and plan. - Patient Problems (1) ESRD (end stage renal disease) Current Visit: Yes Status: Chronic (2) Asthma Current Visit: Yes Status: Chronic (3) Paroxysmal atrial fibrillation Current Visit: Yes Status: Acute (4) Bradycardia Current Visit: Yes Status: Acute (5) Shortness of breath Current Visit: Yes Status: Acute (6) Medical non-compliance Current Visit: Yes Status: Chronic
[2019-09-21 15:30] VITALS: BP 111/66
--- NOTE | 2019-09-21 15:55 | Discharge Summary ---
Providers - Providers Date of Admission: 09/19/19 23:41 Date of discharge: 09/21/19 Attending physician: CASI MOYA 09/19/19 18:47 Consult to Physician [CONS] Urgent Comment: Dr. Coelho spoke with Dr. Fuentes @ [phone] Consulting Provider: DANITA JACOBS Physician Instructions: Reason For Exam: esrd 09/20/19 02:50 Consult to Dietitian/Nutrition [CONS] Routine Physician Instructions: Reason For Exam: Reason for Consult: Poor oral intake 09/21/19 05:26 Consult to Physician [CONS] Routine Comment: Consulting Provider: LEON GARCIA Physician Instructions: Reason For Exam: ekg changes from Afib to SB 1st AVB Primary care physician: SALES HOST Hospitalization Condition: Stable Hospital course: Patient is a 84-year-old -[place] man with history of ESRD on HD (M/W/F), and asthma who presents [facility] ED with complaints of shortness of breath after missing multiple dialysis. * pCXR Impression: Mild cardiomegaly with suggestion of mild interstitial edema and possibly a small left pleural effusion. * CT Head without contrast Impression: Negative for acute findings Afib consulted Cardiology Bradycardia down to 45 Hyperkalemia -on admission 5.8 -Received hyperkalemic cocktail -Follow-up on repeat labs -Continue to monitor electrolytes ESRD -on HD M/W/F -Last dialyzed on Sunday (09/08/2019) -Missed HD sessions due to transportation issues -Cr on admission 16.1 -Avoid nephrotoxic agents -Renal dose all meds -Nephrology consulted Recent Fall -Pt resports falling a few days ago and hitting his head -CT Head Negative Asthma -Albuterol prn DVT PPX -on Heparin Disposition: DC-01 TO HOME OR SELFCARE Time spent for discharge: 35 minutes Core Measure Documentation - Palliative Care Palliative Care/ Comfort Measures: Not Applicable - Core Measures Any of the following diagnoses?: none - VTE Discharge Requirements Deep Vein Thrombosis/Pulmonary Embolism Present on Admission: No Has pt received <5 days of overlap therapy or INR<2.0: No Anticoagulant overlap therapy prescribed at discharge: No Contraindication No Overlap Therapy order at DC: Not Indicated Exam - Physical Exam Narrative exam: Gen: WDWN, NAD, Awake, Alert, Orientated HEENT: NCAT, EOMI, PERRL, OP Clear Neck: supple, no adenopathy, no thyromegaly, no JVD CVS/Heart: irregular irregular, normal S1S2, pulses present bilaterally Chest/Lungs: CTA B, Symmetrical chest expansion, good air entry bilaterally GI/Abdomen: soft, NTND, good bowel sounds, no guarding or rebound /Bladder: no suprapubic tenderness, no CVA or paraspinal tenderness Extermity/Skin: no c/c/e, no obvious rash MSK: FROM x 4 Neuro: CN 2-12 grossly intact, no new focal deficits Psych: calm - Constitutional Vitals: Temp Pulse Resp BP Pulse Ox 98.0 F 57 L 16 111/66 97 09/21/19 15:29 09/21/19 15:29 09/21/19 15:29 09/21/19 15:29 09/21/19 15:31 Plan Activity: up only with assistance, fall precautions, other (no strenous activity unless cleared by PCP) Diet: renal Special Instructions: home health RN Durable Medical Equipment Needed Upon Discharge: Cane-Quad, Wheelchair Follow up with: MAHESH MENDIOLA MD [Staff Physician] - 7 Days LUIS MIGUEL SYKES MD [Staff Physician] - 7 Days
--- NOTE | 2019-09-21 18:41 | Event Note ---
Date: 09/21/19 pt has apparent parox afib. 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 furthermore, ac for afib in dialysis dependent pt is controversial with respect to risk benefit.
== END 2019-09-21 19:31 | disposition home or self-care (01) ==
LOC: ED 13:52 → 4A 23:41
PROVIDERS: ADMIT Internal Medicine; ATTEND Internal Medicine
DX: E87.5 Hyperkalemia (principal); I12.0 Hypertensive chronic kidney disease with stage 5 chronic kidney disease or end stage renal disease; N18.6 End stage renal disease; J45.909 Unspecified asthma, uncomplicated; G93.89 Other specified disorders of brain; R79.89 Other specified abnormal findings of blood chemistry; Z99.2 Dependence on renal dialysis
CPT/HCPCS: 36415; 70450; 71045; 80048; 80053; 80074; 84132; 85025; 93005; 93010; 94644; 96372; 96374; 96375; 99284; G0257; G0378; J0610; J1644; J1815